=== PATIENT | male | born 1980 | race Caucasian/White ===

== ENCOUNTER 2022-06-12 20:02 | Emergency (ER) | payer OTHER, SELFPAY ==
--- NOTE | ~2022-06-12 | XR_ITS ---
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 RESULT: Lines, tubes, and devices: None. Lungs and pleura: Clear. Cardiomediastinal silhouette: Stable. Other: No acute osseous or upper abdominal finding. IMPRESSION: No acute cardiopulmonary process. Reviewed, dictated and finalized at location K. INSPECTOR
[2022-06-12 20:06] VITALS: BP 140/87; PULSE 96; RESP 14; TEMP 36.8; O2SAT 100
--- NOTE | 2022-06-12 20:11 | ECG_ITS ---
Measurements Intervals [place] Rate: 91 P: 82 ID: [id number] QRS: 69 QRSD: 90 T: 38 QT: 346 QTc: 426 Interpretive Statements SINUS RHYTHM POSSIBLE LEFT ATRIAL ENLARGEMENT [-0.1mV P WAVE IN V1/V2] POSSIBLE LEFT VENTRICULAR HYPERTROPHY [VOLTAGE CRITERIA PLUS LAE OR QRS WIDENING] NONSPECIFIC T-WAVE ABNORMALITY ABNORMAL ECG NO PREVIOUS ECG AVAILABLE FOR COMPARISON Electronically Signed On 06-13-2022 8:05:05 [employer] by Keegan Jha M.D.
[2022-06-12 20:22] VITALS: PULSE 84; RESP 15; O2SAT 100
[2022-06-12 20:30] VITALS: PULSE 77; RESP 17; O2SAT 100
[2022-06-12 20:39] VITALS: PULSE 84
[2022-06-12 20:45] VITALS: PULSE 81; RESP 17; O2SAT 100
--- NOTE | 2022-06-12 20:49 | ED.GENADULT ---
HPI - General Adult General Chief complaint: Unspecified Stated complaint: R sided jaw pain Time Seen by Provider: 06/12/22 20:28 History of Present Illness HPI narrative: Patient is a 42-year-old gentleman who presents the emergency department with chief complaint of right mandible pain patient reports that on Tuesday he started having an aching sensation in his right mandible patient states that its around his posterior right 2 molars patient reports the pain is not associated with chewing reports no swelling in his mouth patient reports no pain radiating down into his neck or chest. The patient denies diaphoresis denies shortness of breath. Patient reports he has never had a heart attack but did have possible myocarditis after a significant multifocal pneumonia that required hospitalization the patient was seen by cardiology at [facility] and was cleared from a cardiology perspective. The patient today went to a local urgent care facility that said because he was having jaw pain that he should have a cardiac work-up and suggested the patient come to the emergency department Related Data Allergies Allergy/AdvReac Type Severity Reaction Status Date / Time No Known Allergies Allergy Unknown Verified 06/12/22 20:09 Review of Systems Review of Systems: A 10 system review of systems was completed on the patient and is negative except for what is stated in the HPI. Nursing and ancillary documentation was reviewed. [facility] Family History Family History (Updated 03/20/18 @ 08:17 by DOCTOR UNKNOWN) Father Hypertension Grandparent Family history of cardiovascular disease Family history of malignant neoplasm Other Carcinoma of colon Social History Social History Smoking status: Never smoker Alcohol intake: current Exam Narrative: GENERAL: Well-appearing, well-nourished, and in no acute distress. HEAD: Normocephalic, atraumatic. EYES: PERRLA and EOMI. ENT: Nares clear, no rhinorrhea or epistaxis. Mucous membranes moist. There is a repaired carry in the second molar on the right there is no percussion tenderness there is no swelling NECK: Supple. CHEST: Clear to auscultation. No respiratory distress. HEART: Regular rate and rhythm. No murmur heard. Normal peripheral pulses. ABDOMEN: Soft, nontender, nondistended, normal active bowel sounds. EXTREMITIES: Normal range of motion. No edema. SKIN: Warm, dry, no rash. NEURO: No focal deficits. Alert and oriented x3. PSYCH: Normal mood and affect. Course Vital Signs Vital signs: Vital Signs Temperature 36.8 C 06/12/22 20:06 Pulse Rate 96 06/12/22 20:06 Respiratory Rate 14 06/12/22 20:06 Blood Pressure 140/87 06/12/22 20:06 Pulse Oximetry 100 06/12/22 20:06 Oxygen Delivery Room Air 06/12/22 20:06 Temperature 36.8 C 06/12/22 20:06 Pulse Rate 81 06/12/22 20:45 Respiratory Rate 17 06/12/22 20:45 Blood Pressure 140/87 06/12/22 20:06 Pulse Oximetry 100 06/12/22 20:45 Oxygen Delivery Room Air 06/12/22 20:06 Medical Decision Making MDM Narrative Medical decision making narrative: EKG interpreted by me as sinus rhythm rate of [address] elevation or ST depression Differential diagnosis includes ACS, dysrhythmia, she states the dental pain, dental abscess, Laboratory studies were obtained which showed a normal white blood cell count electrolytes are within normal limits troponin was less than 0.12 lipase was negative chest x-ray showed no focal finding Patient has a heart score of 0 Vital Signs Vital Signs: Vital Signs Temperature 36.8 C 06/12/22 20:06 Pulse Rate 96 06/12/22 20:06 Respiratory Rate 14 06/12/22 20:06 Blood Pressure 140/87 06/12/22 20:06 Pulse Oximetry 100 06/12/22 20:06 Oxygen Delivery Room Air 06/12/22 20:06 Temperature 36.8 C 06/12/22 20:06 Pulse Rate 81 06/12/22 20:45 Respiratory Rate 17 06/12/22 20:45 Blood Pressure 140/87 06/12/22 20:06 Pulse Oximetry 10
[2022-06-12 21:08] LABS: Basophils Percent Auto 0.5 % (0.2-1.2); Eosinophils Absolute Auto 0.1 K/mm3 (0-0.3); Eosinophils Percent Auto 1.8 % (0-4.4); Hematocrit 47.5 % (42.0-52.0); Hemoglobin 15.9 g/dL (14.0-18.0); Immature Granulocyte Absolute 0.02 K/mm3 (0.00-0.031); Immature Granulocyte Percent A 0.3 % (0-0.5); Lymphocytes Absolute Auto 2.62 K/mm3 (0.9-3.2); Lymphocytes Percent Auto 33.3 % (18.3-44.2); Mean Corpuscular HGB Conc 33.5 g/dl (32-36); Mean Corpuscular Hemoglobin 29.1 pg (26-34); Mean Platelet Volume 9.7 fl (7.4-10.4); Monocytes Absolute Auto 0.6 K/mm3 (0.1-0.6); Monocytes Percent Auto 7.8 % (2.6-8.5); Neutrophils Absolute Auto 4.4 K/mm3 (1.3-6.7); Neutrophils Percent Auto 56.3 % (45.5-73.1); Platelet Count Result 227 k/mm3 (150-375); Red Blood Count 5.46 M/mm3 (4.6-6.20); White Blood Count 7.9 K/mm3 (4.5-10.0)
[2022-06-12 21:21] LABS: Alanine Aminotransferase 19 U/L (6-50); Albumin Level 4.7 g/dL (3.5-5.1); Anion Gap 7 mmol/L (8-16); Aspartate Amino Transferase 22 U/L (17-59); Bilirubin,Total 0.4 mg/dL (0.2-1.3); Blood Urea Nitrogen 14 mg/dL (9-20); Calcium 9.3 mg/dL (8.4-10.2); Carbon Dioxide 29 mmol/L (22-30); Chloride 100 mmol/L (98-107); Estimated CRCL calculation 92 ml/min; Estimated Glomerular Filt Rate > 60; Glucose 129 mg/dL (65-110); Lipase 81 U/L (23-300); Magnesium 2.1 mg/dL (1.6-2.3); Potassium 3.9 mmol/L (3.4-5.0); Sodium 136 mmol/L (137-145)
[2022-06-12 21:29] LABS: Alkaline Phosphatase 73 U/L (38-126)
[2022-06-12 21:40] LABS: Troponin I < 0.012 ng/mL (0.000-0.034)
[2022-06-12 22:28] VITALS: BP 127/91; PULSE 80; RESP 20; O2SAT 99
== END 2022-06-12 22:29 | disposition home or self-care (01) ==
PROVIDERS: Emergency Provider Emergency Medicine; PCP Family Medicine
DX: R68.84 Jaw pain (principal); R94.31 Abnormal electrocardiogram [ECG] [EKG]
CPT/HCPCS: 36415; 71045; 80053; 83690; 83735; 84484; 85025; 93005; 99284

== ENCOUNTER 2024-02-25 08:27 | Outpatient (CLI) | payer BC, SELFPAY ==
--- NOTE | ~2024-02-25 | US_ITS ---
Limited Abdominal Sonogram: Real-time sonographic imaging of the right upper quadrant was performed. Clinical History: Chest pain Findings: The liver appears normal with no evidence of mass lesion or bile duct dilatation. Main por jose a vein demonstrates normal direction of flow. The gallbladder is well distended, and appears normal with no evidence of gallstone or wall thickening. The common bile duct measures 2 mm. The visualize d pancreas, aorta, and IVC are unremarkable. Impression: No significant abnormality seen. Reviewed, dictated and finalized at location . 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
== END 2024-02-25 08:28 | disposition home or self-care (01) ==
LOC: MICIMG 08:27
PROVIDERS: PCP Family Medicine; Visit Provider Family Medicine
DX: R07.89 Other chest pain (principal)
CPT/HCPCS: 76705

== ENCOUNTER 2024-03-23 01:54 | Day surgery (SDC) | payer BC, SELFPAY ==
[2024-03-07 11:20] VITALS: BMI 28.0
[2024-03-23 11:25] VITALS: BP 141/98; PULSE 78; RESP 18; TEMP 36.4; O2SAT 100
--- NOTE | 2024-03-23 11:34 | P.PNAN_ITS ---
Anes - Initial Pre Proc Eval Procedure: Operation Date: 03/23/24 12:30 Proposed Procedures p Esophagogastroduodenoscopy&Screen Colon - Terry Bolanos MD Date/Time: 03/23/24 11:34 Surgeon: Terry Bolanos MD Pre Op Diagnosis: other chest pain, screening colon Patient Data Age: 44 Gender: M Height: 1.73 m Weight: 81.4 kg Last Vital Signs Temp 97.5 F L 03/23/24 11:25 Pulse 78 03/23/24 11:25 Resp 18 03/23/24 11:25 BP 141/98 H 03/23/24 11:25 Pulse Ox 100 03/23/24 11:25 O2 Del Method Room Air 03/23/24 11:25 Allergies Allergy/AdvReac Type Severity Reaction Status Date / Time No Known Allergies Allergy Unknown Verified 03/23/24 11:24 Home Medications Medication Instructions Recorded Confirmed Type atorvastatin 20 mg tablet 20 mg PO QHS #30 tabs 01/30/24 03/23/24 Rx metoprolol tartrate 25 mg tablet 25 mg PO BID #60 tabs 01/30/24 03/23/24 Rx omeprazole 40 mg capsule,delayed 40 mg PO BID 03/07/24 03/23/24 History release Patient hx anesthesia problems: none Family hx anesthesia problems: none Results Review: All pre-operative results and documents have been reviewed as part of the pre- operative evaluation. [facility] Past Medical History Medical History Myocarditis Family History Family History Father Hypertension Grandparent Family history of cardiovascular disease Family history of malignant neoplasm Other Carcinoma of colon Social History Social History Smoking status: Never smoker Alcohol intake: current Drinks per week: 2 Alcohol use details: Beer Substance use: current Substance use type: does not use Do You Feel Safe in your Home?: Yes Lack of Transportation: No Lack of Food: Never True Current Housing: I Have Housing Concerned About Future Housing: No Difficulty Paying Gas/Electric Bills: No Difficulty Paying for Meds: No Currently Unemployed: No Education: Master's Degree or Higher Difficulty w/ Childcare or Family Care: No Living arrangements: with family Spiritual care concerns: No Anes - Eval Final PreProcedure Day of Procedure 03/23/24 11:34 Patient weight: normal Heart: regular rate and rhythm Lungs: clear to auscultation Airway: Mallampati scale class II Neurological: alert and oriented Last oral intake: >/= 8 hours ASA classification: II Emergent: no Anesthetic plan: proceed Anesthesia type and monitoring: general GIVS and standard monitoring Results Review: All pre-operative results and documents have been reviewed as part of the pre- operative evaluation. HTN, hyperlipidemia. Informed Consent: The patient's anesthetic plan and its attendant risks and benefits were discussed with the patient/family/POA. Questions were solicited and answers provided to the satisfaction of the patient/family/POA.
[2024-03-23] MEDS: LACTATED RINGERS 1,000 ML 150 ML IV CONT (11:39)
--- NOTE | 2024-03-23 12:04 | PM.IMHP ---
H&P: HPI History of Present Illness Date/Time: 03/23/24 12:04 Chief Complaint: Epigastric discomfort. Family history of colorectal cancer. Narrative: The patient has been suffering from epigastric discomfort, fullness and postprandial burning sensation for the past 7 months. He has undergone an extensive cardiac workup, all within normal limits. In addition, patient has 2 grandparents with colorectal cancer history at young ages. He is here for EGD and colonoscopy. Review of Systems Review of Systems: All systems reviewed & are unremarkable except as noted in HPI and below PMFSH Past Medical History Medical History Myocarditis Family History Family History Father Hypertension Grandparent Family history of cardiovascular disease Family history of malignant neoplasm Other Carcinoma of colon Social History Social History Smoking status: Never smoker Alcohol intake: current Drinks per week: 2 Alcohol use details: Beer Substance use: current Substance use type: does not use Do You Feel Safe in your Home?: Yes Lack of Transportation: No Lack of Food: Never True Current Housing: I Have Housing Concerned About Future Housing: No Difficulty Paying Gas/Electric Bills: No Difficulty Paying for Meds: No Currently Unemployed: No Education: Master's Degree or Higher Difficulty w/ Childcare or Family Care: No Living arrangements: with family Spiritual care concerns: No Meds Home Medications and Allergies Home Medications Medication Instructions Recorded Confirmed Type atorvastatin 20 mg tablet 20 mg PO QHS #30 tabs 01/30/24 03/23/24 Rx metoprolol tartrate 25 mg tablet 25 mg PO BID #60 tabs 01/30/24 03/23/24 Rx omeprazole 40 mg capsule,delayed 40 mg PO BID 03/07/24 03/23/24 History release Allergies Allergy/AdvReac Type Severity Reaction Status Date / Time No Known Allergies Allergy Unknown Verified 03/23/24 11:24 Vital Signs Vital Signs - 24 hr 03/23/24 11:25 Temperature 97.5 F L Pulse Rate 78 Respiratory Rate 18 Blood Pressure 141/98 H Pulse Oximetry 100 Oxygen Delivery Room Air Exam Const: General: cooperative and healthy appearing Resp: Effort & Inspection: normal respiratory effort and able to speak in complete sentences Auscultation: clear to auscultation bilaterally Cardio: Rate: regular rate Rhythm: regular rhythm GI: Inspection: normal to inspection GI Palp: No No hepatosplenomegaly present Auscultation: normal bowel sounds Rectal Exam: deferred Skin: General skin exam: normal color Psych: Appearance: grossly normal Mental Status: mental status grossly normal Assessment and Plan Assessment and plan (1) Atypical chest pain: Code(s): R07.89 - Other chest pain Status: Acute Assessment and Plan: The patient is deemed a good candidate for EGD and colonoscopy. Consents signed. Will proceed. (2) Family history of colon cancer: Code(s): Z80.0 - Family history of malignant neoplasm of digestive organs Status: Acute
--- NOTE | 2024-03-23 12:28 | SUR.OPER ---
EGD end time: 1222, Colon start time: 1228
[2024-03-23 12:38] VITALS: BP 103/66; PULSE 60; RESP 18; O2SAT 98
[2024-03-23 12:48] VITALS: BP 110/74; PULSE 73; RESP 17; O2SAT 100
[2024-03-23 12:58] VITALS: BP 112/72; PULSE 62; RESP 16; O2SAT 100
== END 2024-03-23 13:20 | disposition home or self-care (01) ==
PROVIDERS: PCP Family Medicine; Visit Provider Internal Medicine Gastroenterology
PROC: 0DJ08ZZ Inspection of Upper Intestinal Tract, Via Natural or Artificial Opening Endoscopic (ICD-10-PCS; CPT 43235; principal; 2024-03-23 12:30)
DX: Z12.11 Encounter for screening for malignant neoplasm of colon (principal); K29.30 Chronic superficial gastritis without bleeding; Z80.0 Family history of malignant neoplasm of digestive organs
CPT/HCPCS: 43239; 45378; 88305; J2704; J7120